=== PATIENT | female | born 1970 | race Caucasian/White ===

== ENCOUNTER 2017-10-01 21:40 | Emergency (ER) | payer SELFPAY ==
[~2017-10-01] VITALS: Ht 162.6 cm; Wt 59.0 kg
[2017-10-01 21:44] VITALS: BP 119/71
--- NOTE | 2017-10-01 21:45 | ED.ADGEN ---
Adult General Chief Complaint Chief Complaint ".. I was giving my cat a bath...Larry ... and he bit me.... It was bleeding bad... I came in to get it sutured...but I ve healed myself by the time I got back here....".." just want it suture real quick..." HPI HPI Patient is a 47 year old female who presents with above hx and complaints cat bite and laceration to Rt. hand and wrist. . Pt. has had cat for 5 yrs. and does not know his vaccination status. She does not know her vaccination status. Wound was washed at home. When Pt. was informed we do not suture bites or punctures wounds, she decided to leave. Pt insistent she would not take any antibiotics. Pt. states she does not put antibiotics into her system. Pt. declined further irrigation of wound, x- rays , antibiotics and to even take a Rx. for antibiotics in case she changed her mind and decided to take them later. Explained to her that un tx.ed cat bites have 80% chance of infection. Pt angry I would not suture the 1 cm laceration area of Rt wrist. Begged pt to reconsider her decision to leave. I employed input from her daughter get her mother to stay and get further tx. Pt. absolutely would not stay & get any antibiotics . States she only came for suture repair. PD notified of Cat bite. Pt Rt hand & wrist at this time are swollen, with punctures wounds and scratches. Distal neurovascular intact. Pt. Rt. hand dominate. Pt. denies any hx of immunosuppression. No travel or other specific ill contacts. Review of Systems Review of Systems Constitutional: Denies fever or chills [] Eyes: Denies change in visual acuity, redness, or eye pain [] HENT: Denies nasal congestion or sore throat [] Respiratory: Denies cough or shortness of breath [] Cardiovascular: No additional information not addressed in HPI [] GI: Denies abdominal pain, nausea, vomiting, bloody stools or diarrhea [] : Denies dysuria or hematuria [] Musculoskeletal: Denies back pain or joint pain [] Integument: Denies rash or skin lesions []Cat bite Neurologic: Denies headache, focal weakness or sensory changes [] Endocrine: Denies polyuria or polydipsia [] All other systems were reviewed and found to be within normal limits, except as documented in this note. Family History Family History Non-contributory Current Medications Current Medications Current Medications Medications (Trade) Dose Ordered Sig/Sea Start Time Stop Time Status Last Admin Dose Admin Ceftriaxone Sodium (Rocephin Im) 1 gm 1X ONCE 10/01/17 22:15 10/01/17 22:37 DC Tetanus/ Diphtheria Toxoids Adsorbed (Tenivac Vial) 0.5 ml ONCE ONCE 10/01/17 22:15 10/01/17 22:35 DC Allergies Allergies Allergies Coded Allergies Type Severity Reaction Last Updated Verified Penicillins Allergy Unknown 10/01/17 Yes Physical Exam Physical Exam Constitutional: In moderately acute distress, non-toxic appearance. [] HENT: Normocephalic, atraumatic, bilateral external ears normal, oropharynx moist, no oral exudates, nose normal. [] Eyes: PERRLA, EOMI, conjunctiva normal, no discharge. [] Neck: Normal range of motion, no tenderness, supple, no stridor. [] Cardiovascular:Heart rate regular rhythm, no murmur [] Lungs & Thorax: Bilateral breath sounds clear to auscultation [] Abdomen: Bowel sounds normal, soft, no tenderness, no masses, no pulsatile masses. [] Skin: Warm, dry, no erythema, no rash. [Except Cat bite and scratches to Rt. hand and wrist. Back: No tenderness, no CVA tenderness. [] Extremities: No tenderness, no cyanosis, no clubbing, ROM intact, no edema. [] Neurologic: Alert and oriented X 3, normal motor function, normal sensory function, no focal deficits noted. [] Psychologic: Affect angry, judgement normal, mood normal. [] Current Patient Data Vital Signs Vital Signs Date Time Temp Pulse Resp B/P (MAP) Pulse Ox O2 Delivery O2 Flow Rate FiO2 10/01/17 21:44 98.2 92 16 97 Room Air EKG EKG [] Radiology/Procedures Radiology/Procedures Refuse x-ray[] Course & Med Decision Making Course & Med Decision Making Pertinent Labs and Imaging studies reviewed. (See chart for details) . Refuse further care for cat bite. Begged pt to at least take a Rx for antibiotics. Advised to keep cat under observation for rabies. Pt. encourage to return at any time if she wished treatment. [] Final Impression Final Impression 1. Cat Bite[]& scratches to Rt. hand and wrist Dragon Disclaimer Dragon Disclaimer This electronic medical record was generated, in whole or in part, using a voice recognition dictation system. NOEL SUGGS MD Oct 01, 2017 21:45
[2017-10-01] MEDS ORDERED: AMOX1TAB61 PO (22:12)
[2017-10-01] MEDS ORDERED: FLUC100T7 PO (22:13)
[2017-10-01] MEDS ORDERED: cefTRIAXone IM 1 GM VIAL IM ONE (22:15)
[2017-10-01] MEDS ORDERED: TETANUS AND DIPHTHERIA TOX/PF 0.5 ML VIAL. VAX IM ONE (22:15)
== END 2017-10-01 22:43 | disposition home or self-care (01) ==
LOC: ER 21:40
DX: S61.451A Open bite of right hand, initial encounter (principal); S61.551A Open bite of right wrist, initial encounter; Z88.0 Allergy status to penicillin; W55.01XA Bitten by cat, initial encounter; Y93.89 Activity, other specified; Y99.8 Other external cause status; Y92.89 Other specified places as the place of occurrence of the external cause
CPT/HCPCS: 99282

== ENCOUNTER → 2020-09-13 | Outpatient (CLI) | payer OTHER ==
[~2020-09-13] MED LIST: AMOX1TAB61 PO; FLUC100T7 PO
--- NOTE | 2020-09-16 12:07 | RAD ---
EXAM: Bilateral screening mammogram. HISTORY: 49-year-old female presents for screening mammography. TECHNIQUE: Full-field digital craniocaudal and mediolateral oblique views of both breasts are obtaine d for evaluation. Computer aided detection was applied. COMPARISON: 02/15/2019 BREAST PARENCHYMAL DENSITY: Level B - Scattered fibroglandular densities. FINDINGS: There is no new suspicious mass, microcalcification or region of architectural distortion. IMPRESSION: BI-RADS Category 1: Negative. RECOMMENDATION: Annual mammography is recommended. If your mammogram demonstrates that you have dense breast tissue, which could hide abnormalities, and if you have other risk factors for breast cancer that have been identified, you might benefit from s upplemental screening tests that may be suggested by your ordering physician. Dense breast tissue, i n and of itself, is a relatively common condition. This information is not provided to cause undue c oncern, but rather to raise your awareness and to promote discussion with your physician regarding th e presence of other risk factors, in addition to dense breast tissue. A report of your mammography re sults will be sent to you and your physician. You should contact your physician if you have any ques tions or concerns regarding this report. Mammography is a sensitive method for finding small breast cancers, but it does not detect them all a nd is not a substitute for careful clinical examination. A negative mammogram does not negate a clin ically suspicious finding and should not result in delay in biopsying a clinically suspicious abnorma lity. PQRS compliance statement - Patient information was entered into a reminder system with a target due date for the next mammogram. "Our facility is accredited by the [employer] Mammography [employer]." Electronically signed by: Keisha Eduardo MD (09/16/2020 12:05 PM) [id number]
== END ==
LOC: MAMMO 11:11
PROVIDERS: ATTEND Family Medicine
DX: Z12.31 Encounter for screening mammogram for malignant neoplasm of breast (principal)
CPT/HCPCS: 77067